=== PATIENT | female | born 1935 | race African-American/Black ===

== ENCOUNTER 2016-09-01 23:06 | Emergency (ER) | payer MEDICARE, OTHER ==
[~2016-09-01] VITALS: Ht 157.5 cm; Wt 64.8 kg
[2016-09-01] MEDS ORDERED: ATOR10TA84 PO (23:55)
[2016-09-01] MEDS ORDERED: HYDR25TA PO (23:56)
[2016-09-01] MEDS ORDERED: POTA10TA17 PO (23:58)
[2016-09-01] MEDS ORDERED: ESCI20TA PO (23:58)
[2016-09-01] MEDS ORDERED: LOSA50TA37 PO (23:59)
[2016-09-02] MEDS ORDERED: ACETAMINOPHEN 325 MG TABLET PO ONE
[2016-09-02 00:29] LABS: BASOPHILS % (AUTO) 0.6 % (0.0-2.0); EOSINOPHILS % (AUTO) 1.7 % (1.0-6.0); HEMATOCRIT 28.9 % (36-46); HEMOGLOBIN 9.4 g/dL (12.0-16.0); LYMPHOCYTES # (AUTO) 1.6 K/uL (1.0-4.8); LYMPHOCYTES % (AUTO) 26.7 % (22.0-44.0); MEAN CORPUSCULAR HEMOGLOBIN 30.2 pg (26.0-34.0); MEAN CORPUSCULAR HGB CONC 32.6 G/dL (31.0-37.0); MEAN CORPUSCULAR VOLUME 93 fL (80-100); MONOCYTES # (AUTO) 0.9 K/uL (0.1-1.0); MONOCYTES % (AUTO) 15.2 % (2.0-9.0); NEUTROPHILS # (AUTO) 3.3 K/uL (1.8-7.7); NEUTROPHILS % (AUTO) 55.8 % (40.0-70.0); PLATELET COUNT (AUTO) 280 K/uL (150-450); RED BLOOD CELL COUNT(AUTO) 3.12 MIL/uL (4.00-5.20); RED CELL DISTRIBUTION WIDTH 13.8 % (11.5-14.5); WHITE BLOOD COUNT (AUTO) 5.9 K/uL (4.5-11.0)
[2016-09-02 00:38] LABS: CALCIUM, TOTAL 9.2 mg/dL (8.8-10.5); CREATININE 1.38 mg/dL (0.60-1.30); POTASSIUM 3.8 mmol/L (3.5-5.1)
[2016-09-02 00:43] LABS: ALBUMIN 3.4 g/dL (3.4-5.0); BILIRUBIN,TOTAL 0.5 mg/dL (0.1-1.0); TOTAL PROTEIN, SERUM 6.7 g/dL (6.4-8.2)
[2016-09-02 00:53] VITALS: BP 135/80
== END 2016-09-02 00:59 | disposition home or self-care (01) ==
LOC: EMS 23:08
DX: M79.672 Pain in left foot (principal); I10 Essential (primary) hypertension; Z88.8 Allergy status to other drugs, medicaments and biological substances; Z91.041 Radiographic dye allergy status
CPT/HCPCS: 99285

== ENCOUNTER 2017-04-23 20:01 | Inpatient (IN) | payer MEDICARE, OTHER ==
[~2017-04-23 20:01] MED LIST: ATOR10TA84 PO; ESCI20TA PO; HYDR25TA PO; LOSA50TA37 PO; POTA10TA17 PO
[2017-04-23 20:20] VITALS: BP 134/82
[2017-04-23] MEDS ORDERED: ACETAMINOPHEN 325 MG TABLET PO PRN (21:45)
[2017-04-23] MEDS: DEXTROSE 5%-0.9% SODIUM CHL 1,000 ML IV SCH (22:45)
[2017-04-24 00:11] VITALS: BP 136/71
[2017-04-24 04:28] LABS: APPEARANCE,URINE CLEAR (CLEAR); BILIRUBIN,URINE NEGATIVE (NEGATIVE); GLUCOSE, URINE (UA) NEGATIVE (NEGATIVE); KETONES,URINE NEGATIVE (NEGATIVE); LEUKOCYTE ESTERASE ,URINE SMALL (NEGATIVE); NITRATE,URINE NEGATIVE (NEGATIVE); OCCULT BLOOD,URINE NEGATIVE (NEGATIVE); PROTEIN,URINE NEGATIVE (NEGATIVE); UROBILINOGEN,URINE 0.2 mg/dL (<=1.0)
[2017-04-24 04:34] VITALS: BP 135/73
[2017-04-24 04:50] LABS: BACTERIA,URINE Rare /HPF (None Seen); RBC,URINE 0-2 /HPF (0-2); SQUAMOUS EPITHELIAL CELL,UR Few /LPF (None Seen); YEAST,URINE Few /HPF (None Seen)
[2017-04-24 06:28] LABS: ALBUMIN 3.4 g/dL (3.4-5.0); BILIRUBIN,TOTAL 0.6 mg/dL (0.1-1.0); CALCIUM, TOTAL 8.8 mg/dL (8.8-10.5); CREATININE 1.42 mg/dL (0.60-1.30); MAGNESIUM 2.1 mg/dL (1.80-2.40); POTASSIUM 3.3 mmol/L (3.5-5.1); THYROID STIMULATING HORMONE 1.87 uIU/mL (0.36-3.74); TOTAL PROTEIN, SERUM 5.9 g/dL (6.4-8.2)
[2017-04-24 06:59] LABS: BASOPHILS % (AUTO) 1.5 % (0.0-2.0); HEMATOCRIT 28.9 % (36-46); HEMOGLOBIN 9.8 g/dL (12.0-16.0); LYMPHOCYTES # (AUTO) 1.7 K/uL (1.0-4.8); LYMPHOCYTES % (AUTO) 40.6 % (22.0-44.0); MEAN CORPUSCULAR HEMOGLOBIN 32.6 pg (26.0-34.0); MEAN CORPUSCULAR HGB CONC 34.1 G/dL (31.0-37.0); MEAN CORPUSCULAR VOLUME 96 fL (80-100); MONOCYTES # (AUTO) 0.5 K/uL (0.1-1.0); MONOCYTES % (AUTO) 11.9 % (2.0-9.0); NEUTROPHILS # (AUTO) 1.8 K/uL (1.8-7.7); PLATELET COUNT (AUTO) 269 K/uL (150-450); RED BLOOD CELL COUNT(AUTO) 3.02 MIL/uL (4.00-5.20); RED CELL DISTRIBUTION WIDTH 13.9 % (11.5-14.5)
[2017-04-24 07:20] VITALS: BP 134/58
[2017-04-24] MEDS: LOSARTAN POTASSIUM 50 MG TABLET PO SCH (07:55)
[2017-04-24] MEDS: ESCITALOPRAM OXALATE 20 MG TABLET PO SCH (07:55)
[2017-04-24] MEDS: PANTOPRAZOLE SODIUM 40 MG/VIAL IVP SCH (07:55)
[2017-04-24] MEDS: HYDROCHLOROTHIAZIDE 25 MG TABLET PO SCH (07:56)
[2017-04-24] MEDS: ATORVASTATIN CALCIUM 10 MG TABLET PO SCH (07:56)
[2017-04-24] MEDS: POTASSIUM CHLORIDE 10 MEQ ER TABLET PO SCH (07:56)
[2017-04-24 11:09] VITALS: BP 125/73
[2017-04-24 16:16] VITALS: BP 146/76
[2017-04-24 19:49] VITALS: BP 137/81
[2017-04-25 05:01] VITALS: BP 139/79
[2017-04-25] MEDS: DEXTROSE 5%-0.9% SODIUM CHL 1,000 ML IV SCH (06:08)
[2017-04-25 07:49] VITALS: BP 126/63
[2017-04-25 07:56] LABS: CALCIUM, TOTAL 8.9 mg/dL (8.8-10.5); CREATININE 1.3 mg/dL (0.60-1.30); POTASSIUM 3.7 mmol/L (3.5-5.1)
[2017-04-25] MEDS: PANTOPRAZOLE SODIUM 40 MG/VIAL IVP SCH (09:08)
[2017-04-25] MEDS: POTASSIUM CHLORIDE 10 MEQ ER TABLET PO SCH (09:08)
[2017-04-25] MEDS: ESCITALOPRAM OXALATE 20 MG TABLET PO SCH (09:08)
[2017-04-25] MEDS: LOSARTAN POTASSIUM 50 MG TABLET PO SCH (09:08)
[2017-04-25] MEDS: HYDROCHLOROTHIAZIDE 25 MG TABLET PO SCH (09:08)
[2017-04-25] MEDS: ATORVASTATIN CALCIUM 10 MG TABLET PO SCH (09:08)
[2017-04-25 15:26] VITALS: BP 129/74
[2017-04-25 19:20] VITALS: BP 100/66
[2017-04-26] MEDS: DEXTROSE 5%-0.9% SODIUM CHL 1,000 ML IV SCH (01:31)
[2017-04-26 06:53] VITALS: BP 127/74
[2017-04-26 07:24] VITALS: BP 128/70
[2017-04-26] MEDS: ESCITALOPRAM OXALATE 20 MG TABLET PO SCH (08:45)
[2017-04-26] MEDS: POTASSIUM CHLORIDE 10 MEQ ER TABLET PO SCH (08:45)
[2017-04-26] MEDS: ATORVASTATIN CALCIUM 10 MG TABLET PO SCH (08:45)
[2017-04-26] MEDS: LOSARTAN POTASSIUM 50 MG TABLET PO SCH (08:45)
[2017-04-26] MEDS: HYDROCHLOROTHIAZIDE 25 MG TABLET PO SCH (08:45)
[2017-04-26] MEDS: PANTOPRAZOLE SODIUM 40 MG/VIAL IVP SCH (08:45)
[2017-04-26 11:14] VITALS: BP 121/63
[2017-04-26] MEDS ORDERED: ACET-784 PO (13:03)
[2017-04-26 15:29] VITALS: BP 136/76
== END 2017-04-26 18:45 | disposition home or self-care (01) | DRG 641 ==
LOC: 6N 20:10
PROVIDERS: ADMIT Internal Medicine; ATTEND Internal Medicine
DX: E86.0 Dehydration (principal); G30.9 Alzheimer's disease, unspecified; D63.8 Anemia in other chronic diseases classified elsewhere; N12 Tubulo-interstitial nephritis, not specified as acute or chronic; F02.80 Dementia in other diseases classified elsewhere, unspecified severity, without behavioral disturbance, psychotic disturbance, mood disturbance, and anxiety; I12.9 Hypertensive chronic kidney disease with stage 1 through stage 4 chronic kidney disease, or unspecified chronic kidney disease; N18.9 Chronic kidney disease, unspecified; J44.9 Chronic obstructive pulmonary disease, unspecified; G89.4 Chronic pain syndrome; F32.9 Major depressive disorder, single episode, unspecified; E78.00 Pure hypercholesterolemia, unspecified; Z79.899 Other long term (current) drug therapy; Z87.891 Personal history of nicotine dependence; Z88.8 Allergy status to other drugs, medicaments and biological substances
CPT/HCPCS: 71020; 76770; 83735; 84443; 87086; 97162; 97166; 97530; C9113; J7042